=== PATIENT | female | born 1980 | race African-American/Black ===

== ENCOUNTER 2017-04-29 17:44 | Emergency (ER) | payer BC, OTHER ==
[~2017-04-29] VITALS: Ht 182.9 cm; Wt 65.3 kg
[~2017-04-29 17:44] MED LIST: FLUCONAZOLE100 MG ORAL; MONISTAT 11 EACH VG; PROBIOTIC1 EAC5 PO; ZYRTEC10 MG ORAL
[2017-04-29] MEDS ORDERED: NKM (18:05)
--- NOTE | 2017-04-29 18:37 | Emergency Room Report ---
History of Present Illness General Chief Complaint: Multiple Trauma/Fall Source: Patient Present Illness HPI 36-year-old female presents to the emergency department complaining of 9 out of 10 in severity pain that is localized to the left knee in addition to the right hip and posterior lateral right shoulder since last night. Patient status post slip and fall while at work. Patient denies hitting her head she denies loss of consciousness she reports that she felt her knee twisting out from under her and attempted to counterbalance which she subsequently fell onto her right side landing on concrete. Patient denies bruising at this time she reports swelling in the left knee. Pt. states pain upon bending the left knee. Denies numbness tingling or loss of sensation or gross motor movements of the extremities, incontinence of bowel or bladder. Denies CP, Palpitations, LOC, AMS, dizziness, Changes in Vision, Sensation, paresthesias, or a sudden severe headache. Allergies: Coded Allergies: Dairy (Verified Allergy, Severe, n/v, sweating, 06/01/15) LATEX (Verified Allergy, Severe, Rash, 06/01/15) FLUCONAZOLE (Verified Allergy, Unknown, swelling of the lips, 06/01/15) Patient History Past Medical History: see triage record Past Surgical History: none Pertinent Family History: none Last Menstrual Period: 03/31/2017 Now: No Immunizations: UTD Reviewed Nursing Documentation: PMH: Agreed, PSxH: Agreed Nursing Documentation-PMH Past Medical History: No History, Except For Hx Cardiac Problems: Yes - HEART MURMUR Hx Cancer: No Hx Gastrointestinal Problems: Yes Hx Neurological Problems: No Review of Systems All Other Systems: negative except mentioned in HPI Physical Exam Vital Signs Date Time Temp Pulse Resp B/P (MAP) Pulse Ox O2 Delivery O2 Flow Rate FiO2 04/29/17 18:01 98.8 59 16 100/61 97 Room Air 98.8 Sp02 EP Interpretation: reviewed, normal General Appearance: no apparent distress, alert, GCS 15, non-toxic Head: normocephalic, atraumatic ENT: hearing grossly normal, normal voice Neck: full range of motion Respiratory: lungs clear, normal breath sounds, speaking full sentences Cardiovascular #1: regular rate, rhythm Musculoskeletal: back normal, gait/station normal, normal range of motion, swelling - left knee, tender - TTP To the anterior and lateral left knee, mild swelling, no increased laxity. TTP to the Right lateral hip, and ttp to the posterior right shoulder. Neurologic: alert, oriented x3, responsive, motor strength/tone normal, sensory intact, speech normal, grossly normal Psychiatric: judgement/insight normal Skin: normal color, no rash, warm/dry, well hydrated Medical Decision Making PA Attestation Dr. Ambrocio is my supervising Physician whom patient management has been discussed with. Diagnostic Impression: Primary Impression: Left knee sprain Qualified Codes: S83.92XA - Sprain of unspecified site of left knee, initial encounter Additional Impressions: Contusion of hip Qualified Codes: S70.01XA - Contusion of right hip, initial encounter Shoulder contusion Qualified Codes: S40.011A - Contusion of right shoulder, initial encounter ER Course 36-year-old female presents to the emergency department complaining of 9 out of 10 in severity pain that is localized to the left knee in addition to the right hip and posterior lateral right shoulder since last night. Patient status post slip and fall while at work. Patient denies hitting her head she denies loss of consciousness she reports that she felt her knee twisting out from under her and attempted to counterbalance which she subsequently fell onto her right side landing on concrete. Patient denies bruising at this time she reports swelling in the left knee. Pt. states pain upon bending the left knee. Denies numbness tingling or loss of sensation or gross motor movements of the extremities, incontinence of bowel or bladder. Denies CP, Palpitations, LOC, AMS, dizziness, Changes in Vision, Sensation, paresthesias, or a sudden severe headache. Ddx considered but are not limited to Fracture, dislocation, contusion, Sprain/ Strain/Spasm. Vital signs: are WNL, pt. is afebrile H&PE are most consistent with musculoskeletal injury will perform imaging to r/ o fractures/dislocations. ORDERS: - X-ray : Left knee and Right Hip ED INTERVENTIONS: - Tylenol PO -Jorge wrap applied by ocular care technician. Pt. remains neurovascularly intact. DISCHARGE: At this time pt. is stable for d/c to home. Will provide printed patient care instructions, and any necessary prescriptions. Care plan and follow up instructions have been discussed with the patient prior to discharge. Other X-Ray Diagnostic Results Other X-Ray Diagnostic Results #1: X-Ray ordered: Right HIP # of Views/Limited Vs Complete: 2 View, 3 View Indication: Pain EP Interpretation: Yes PA Xray: Interpretation reviewed, by supervising MD, and agrees with findings. Interpretation: no dislocation, no soft tissue swelling, no fractures Impression: No acute disease Electronically Signed by: Josefina Patterson PA-C Other X-Ray Diagnostic Results #2: X-Ray ordered: Left Knee # of Views/Limited Vs Complete: 3 View Indication: Pain EP Interpretation: Yes PA Xray: Interpretation reviewed, by supervising MD, and agrees with findings. Interpretation: no dislocation, no soft tissue swelling, no fractures Impression: No acute disease Electronically Signed by: Josefina Patterson PA-C Last Vital Signs Date Time Temp Pulse Resp B/P (MAP) Pulse Ox O2 Delivery O2 Flow Rate FiO2 04/29/17 18:01 98.8 59 16 100/61 97 Room Air 98.8 Disposition: HOME, SELF-CARE Condition: Stable Scripts Lidocaine (Lidoderm) 1 Each Adh..patch 1 PATCH TOPIC DAILY, #30 PATCH 0 Refills Patch(es) may remain in place for up to 12 hours in any 24-hour period. Prov: Josefina Patterson 04/29/17 Ibuprofen* (MOTRIN*) 600 Mg Tablet 600 MG ORAL THREE TIMES A DAY, #20 TAB 0 Refills Prov: Josefina Patterson 04/29/17 Departure Forms: Return to Work Return to Work Date: Apr 30, 2017 Work Restrictions: No Heavy Lifting, No Prolonged Standing Other Restrictions: No prolonged standing or walking, limited use of right arm. Return to Full Activity: May 04, 2017 Patient Instructions: Contusion, [id number] Additional Instructions: Take medications as directed. Follow up with a Primary Care Provider in 3-5 days, even if your symptoms have resolved. --Please review list of primary care clinics, if you do not already have a primary care provider Return sooner to ED if new symptoms occur, or current symptoms become worse. - Please note that this Emergency Department Report was dictated using Jogg technology software, occasionally this can lead to erroneous entry secondary to interpretation by the dictation equipment. Josefina Patterson Apr 29, 2017 18:37
[2017-04-29 19:00] VITALS: BP 100/61
[2017-04-29] MEDS ORDERED: LIDODERM700 M1 TOPIC (19:18)
[2017-04-29] MEDS ORDERED: IBUPROFEN600 MG ORAL (19:18)
[2017-04-29 19:40] VITALS: BP 100/61
--- NOTE | 2017-04-30 11:12 | Diagnostic Imaging Report ---
Indication: Pain Technique: XRAY Hip Routine 2v+ R Comparison: None Findings: No evidence of acute fracture or dislocation. Symphysis pubis and right sacroiliac joint appear within normal limits. No focal soft tissue abnormality is appreciated. No radiopaque foreign body is seen. Impression: No evidence of acute fracture or dislocation.
--- NOTE | 2017-04-30 11:37 | Diagnostic Imaging Report ---
Indication: Pain status post fall Technique: XRAY Knee 3v LT Comparison: None Findings: There is no evidence of acute fracture or dislocation. No focal soft tissue abnormality is identified. No radiopaque foreign body seen. Impression: No acute fracture or dislocation.
== END 2017-04-29 19:40 | disposition home or self-care (01) ==
LOC: EMR 18:10
DX: S83.92XA Sprain of unspecified site of left knee, initial encounter (principal); S70.01XA Contusion of right hip, initial encounter; S40.011A Contusion of right shoulder, initial encounter; W01.0XXA Fall on same level from slipping, tripping and stumbling without subsequent striking against object, initial encounter; Y92.59 Other trade areas as the place of occurrence of the external cause; Y99.0 Civilian activity done for income or pay; Z91.040 Latex allergy status; Z88.8 Allergy status to other drugs, medicaments and biological substances
CPT/HCPCS: 99284

== ENCOUNTER 2017-05-09 15:47 | Emergency (ER) | payer OTHER ==
[~2017-05-09] VITALS: Ht 182.9 cm; Wt 65.8 kg
[~2017-05-09 15:47] MED LIST changes: +IBUPROFEN600 MG ORAL; +LIDODERM700 M1 TOPIC; +NKM
--- NOTE | 2017-05-09 16:17 | Emergency Room Report ---
History of Present Illness General Chief Complaint: Lower Extremity Injury Source: Patient Present Illness HPI 36 yo female patient presents to ER complaining of knee pain x10 day. Reports previously seen in ER, imaging showed no fracture at that time. Reports able to ambulate with some pain. States she was told to return to ER for continued pain, also states was told by job to return to ER. Reports has not been taking Tylenol for past few days, wanted to "wean" herself off the medication. 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 Does not wear DAKOTA wrap at work. Denies fever, chest pain, SOB. Allergies: Coded Allergies: Dairy (Verified Allergy, Severe, n/v, sweating, 06/01/15) LATEX (Verified Allergy, Severe, Rash, 06/01/15) FLUCONAZOLE (Verified Allergy, Unknown, swelling of the lips, 06/01/15) Patient History Past Medical History: see triage record Last Menstrual Period: 3-24 Now: No Reviewed Nursing Documentation: PMH: Agreed; PSxH: Agreed Nursing Documentation-PMH Past Medical History: No History, Except For Hx Cardiac Problems: Yes - HEART MURMUR Hx Cancer: No Hx Gastrointestinal Problems: Yes Hx Neurological Problems: No Review of Systems All Other Systems: negative except mentioned in HPI Physical Exam Vital Signs Date Time Temp Pulse Resp B/P (MAP) Pulse Ox O2 Delivery O2 Flow Rate FiO2 05/09/17 16:00 98.0 55 20 109/64 100 Room Air 98.1 Sp02 EP Interpretation: reviewed, normal General Appearance: well appearing, no apparent distress, alert, GCS 15, non- toxic Head: normocephalic, atraumatic Eyes: bilateral eye normal inspection, bilateral eye PERRL ENT: hearing grossly normal, normal pharynx, no angioedema, normal voice, uvula midline, moist mucus membranes Neck: full range of motion Respiratory: lungs clear, normal breath sounds, no rhonchi, no respiratory distress, no accessory muscle use, no wheezing, speaking full sentences Cardiovascular #1: regular rate, rhythm, no edema Musculoskeletal: back normal, digits/nails normal, gait/station normal, normal range of motion, no calf tenderness, Travis's Sign negative, swelling - mild edema superior to left knee, no warmth to touch, other - NVI, negative posterior and anterior drawer test, negative laxity with varus and valgus stress , no leg length discrepancy, tender - left knee Neurologic: alert, oriented x3, responsive, motor strength/tone normal, sensory intact Psychiatric: mood/affect normal Skin: no rash Lymphatic: no adenopathy Medical Decision Making PA Attestation Dr. Evans is my supervising Physician whom patient management has been discussed with. Diagnostic Impression: Primary Impression: Knee pain ER Course Pt. presents to the ED c/o left knee pain. Ddx considered but are not limited to sprain, strain, contusion. Vital signs: are WNL, pt. is afebrile Ordered DAKOTA wrap and pain medication. ER COURSE No hx of injury since pervious visit., able to ambulate independently. Does not require repeat imaging. Does not want time off. Wants to return to work. Instructed to wear DAKOTA wrap while at work, elevate leg when not standing or at work. Take Tylenol for pain and swelling, is not opioid medication that can cause addiction, do not continue use until cleared by primary care provider. Provided with Toradol in ER. DAKOTA wrap applied to left knee, NVI intact. Patient declined crutches. Paperwork signed for work. Patient does not want restrictions. Instructed to followup with primary care provider for further clearance. Patient walking around ER, in no acute distress, nontoxic appearing, without limp. DISCHARGE: -Rx provided for Tylenol for pain symptoms. At this time pt. is stable for d/c to home. Patient is resting comfortably, in no acute distress, nontoxic appearing, talking without difficulty. Will provide printed patient care instructions, and any necessary prescriptions. Patient instructed to follow with primary care provider in 3 - 5 days and to request further orthopedic follow-up. Care plan and follow up instructions have been discussed with the patient prior to discharge. Patient instructed on RICE method: rest, ice, compression, elevation. Patient instructed to WBAT. Take medications as directed. Patient questions asked and answered. Patient reports understanding and agreement to treatment plan. ER precautions given, patient instructed to return to ER immediately for any new or worsening of symptoms. Last Vital Signs Date Time Temp Pulse Resp B/P (MAP) Pulse Ox O2 Delivery O2 Flow Rate FiO2 05/09/17 16:00 98.0 55 20 109/64 100 Room Air 98.1 Disposition: HOME, SELF-CARE Condition: Stable Scripts Acetaminophen* (TYLENOL EXTRA STRENGTH*) 500 Mg Tablet 500 MG ORAL Q8H PRN for Prn Headache/Temp > 101, #30 TAB 0 Refills Prov: Doug Tanner 05/09/17 Patient Instructions: Knee Sprain Additional Instructions: Patient instructed to follow up with primary care provider and discuss further referral and imaging at that time. Patient instructed on RICE method: rest, ice, compression, elevation. Patient instructed to WBAT. Keep knee wrapped in DAKOTA wrap. Take medications as directed. Patient questions asked and answered. ER precautions given, patient instructed to return to ER immediately for any new or worsening of symptoms. Doug Tanner May 09, 2017 16:17
[2017-05-09] MEDS ORDERED: TYLENOL EXTRA500 MG ORAL (16:34)
[2017-05-09] MEDS: Ketorolac 30mg Inj IM ONE ×2 (16:54→16:57)
[2017-05-09 17:14] VITALS: BP 111/71
== END 2017-05-09 17:14 | disposition home or self-care (01) ==
LOC: EMR 16:40
DX: M25.562 Pain in left knee (principal); W01.0XXA Fall on same level from slipping, tripping and stumbling without subsequent striking against object, initial encounter; Y92.9 Unspecified place or not applicable; Z88.8 Allergy status to other drugs, medicaments and biological substances; Z91.040 Latex allergy status
CPT/HCPCS: 99283